=== PATIENT | female | born 2000 | race African-American/Black ===

== ENCOUNTER 2019-09-25 04:23 | Emergency (ER) | payer SELFPAY ==
[2019-09-25] MEDS ORDERED: ALBUTEROL SULFATE HFA (90 MCG/PUFF) 8 GM MDI (1 MDI/ER DISP) IH ONE (06:39)
[2019-09-25 07:43] VITALS: BP 138/78
--- NOTE | 2019-09-25 12:08 | ER Document Report ---
Entered by JIM CASTORENA SCRIBE 09/25/19 0639 Acting as scribe for:JAMIE REVELES MD ED Respiratory Problem - General Chief Complaint: Shortness Of Breath Stated Complaint: WHEEZING Time Seen by Provider: 09/25/19 06:32 Mode of Arrival: Ambulatory Information source: Patient Notes: Patient is a 19-year-old female with a history of asthma who presents to the emergency department today with complaints of shortness of breath. Patient states that she recently moved to the area and prior to moving here she asked her doctor for more nebulizer treatments and an inhaler. Patient states she was given an inhaler which she ran out of but was told she was "too old for the medicine that goes in the nebulizer machines". Patient was last on prednisone 1 to 2 months ago. TRAVEL OUTSIDE OF THE [place] IN LAST 30 DAYS: No - Related Data Allergies/Adverse Reactions: No Known Allergies Allergy (Verified 09/25/19 07:47) Past Medical History - General Information source: Patient - Social History Smoking Status: Current Some Day Smoker Cigarette use (# per day): Yes - "1 cig a day" Chew tobacco use (# tins/day): No Smoking Education Provided: No Frequency of alcohol use: None Drug Abuse: None Lives with: Family Family History: Reviewed & Not Pertinent Patient has suicidal ideation: No Patient has homicidal ideation: No Pulmonary Medical History: Reports: Hx Asthma Surgical Hx: Negative Review of Systems - Review of Systems Constitutional: No symptoms reported EENT: No symptoms reported Cardiovascular: No symptoms reported Respiratory: See HPI, Cough, Short of breath, Wheezing Gastrointestinal: No symptoms reported Genitourinary: No symptoms reported Female Genitourinary: Last menstrual period - 09/25/2019 Musculoskeletal: No symptoms reported Skin: No symptoms reported Hematologic/Lymphatic: No symptoms reported Neurological/Psychological: No symptoms reported -: Yes All other systems reviewed and negative Physical Exam - Vital signs Vitals: Temp Pulse Resp BP Pulse Ox 97.8 F 68 16 145/92 H 97 09/25/19 04:27 09/25/19 04:27 09/25/19 04:27 09/25/19 04:27 09/25/19 04:27 - Notes Notes: PHYSICAL EXAMINATION: GENERAL: Well-appearing, well-nourished and in no acute distress. HEAD: Atraumatic, normocephalic. EYES: Pupils equal round and reactive to light, extraocular movements intact, sclera anicteric, conjunctiva are normal. ENT: nares patent, oropharynx clear without exudates. Moist mucous membranes. NECK: Normal range of motion, supple without lymphadenopathy LUNGS: Some coarse breath sounds with occasional wheezes heard on forced cough. No tachypnea or shortness of breath noted. HEART: Regular rate and rhythm without murmurs ABDOMEN: Obese. Otherwise unremarkable EXTREMITIES: Normal range of motion, no pitting or edema. No cyanosis. NEUROLOGICAL: Cranial nerves grossly intact. Normal speech, normal gait. Normal sensory, motor, and reflex exams. PSYCH: Normal mood, normal affect. SKIN: Warm, Dry, normal turgor, no rashes or lesions noted. Course - Vital Signs Vital signs: Temp Pulse Resp BP Pulse Ox 98.1 F 72 16 138/78 H 100 09/25/19 07:42 09/25/19 07:42 09/25/19 07:42 09/25/19 07:42 09/25/19 07:42 Discharge - Discharge Clinical Impression: Has run out of medications Asthma Qualifiers: Asthma severity: mild Asthma persistence: intermittent Asthma complication type: with acute exacerbation Qualified Code(s): J45.21 - Mild intermittent asthma with (acute) exacerbation Condition: Stable Disposition: HOME, SELF-CARE Additional Instructions: Asthma You have been diagnosed as having asthma. This is a condition where there is episodic tightness in the bronchial tubes. Allergies, infections, and polluted or cold air may be contributing factors. Emergency treatment of a severe asthma attack may include adrenaline shots, or bronchodilator aerosol. You may feel lightheaded, have a decreased exercise tolerance and a rapid pulse for an hour or two. Rest and get plenty of fluids. Home treatment of asthma requires bronchodilator drugs. These can be administered by injection, inhalation, or by mouth. Antibiotics and corticosteroids may be required for some patients. You should avoid chemical fumes, dusts, pollens, and exercising in very cold or dry air. If you smoke, stop!! If you develop a fever, increased wheezing, chest pain, or severe shortness of breath, you should contact the doctor immediately. Use the nebulizer for controlling your asthma as needed. Keep the inhaler with you when you are away from home in case she needed. Follow-up with a local primary care provider to manage your asthma and any other medical problems. Prescriptions: Albuterol Sulfate [Ventolin 0.083% Neb 2.5 mg/3 mL Ampul] 1 vial NEB Q4 PRN #50 vial PRN Reason: For Wheezing Forms: Parent Work Note, Return to Work Scribe Attestation: 09/25/19 06:40 I personally performed the services described in the documentation, reviewed and edited the documentation which was dictated to the scribe in my presence, and it accurately records my words and actions. I personally performed the services described in the documentation, reviewed and edited the documentation which was dictated to the scribe in my presence, and it accurately records my words and actions.
== END 2019-09-25 07:51 | disposition home or self-care (01) ==
LOC: ER 04:23
DX: J45.21 Mild intermittent asthma with (acute) exacerbation (principal); F17.210 Nicotine dependence, cigarettes, uncomplicated; E66.9 Obesity, unspecified
CPT/HCPCS: 99284; J3490

== ENCOUNTER 2019-11-08 17:54 | Emergency (ER) | payer SELFPAY ==
[2019-11-08] MEDS ORDERED: KETOROLAC TROMETHAMINE 60 MG/2 ML SDV IM ONE (19:37)
--- NOTE | 2019-11-08 19:38 | ER Document Report ---
HPI - HPI Time Seen by Provider: 11/08/19 19:26 Pain Level: 4 Notes: 19-year-old female 19-year-old female presents to the emergency room for new onset lower back pain that started yesterday at approximately 4 PM. No trauma. Tried ibuprofen with some pain relief. Last menstrual period was the end of September. Pain is 4 out of 10, achy and constant. Denies fevers, chills, chest pain,palpitations, shortness of breath, dyspnea, nausea, vomiting, diarrhea, abdominal pain, hematuria,blurred vision, d speech changes, LH, dizziness, syncope, headaches, wheezing, ST, URI, neck pain, weakness, bowel or bladder dysfunction, saddle anesthesia, numbness or tingling in bilateral upper or lower extremities equally, muscle paralysis, weakness in bilateral upper or lower extremities equally or rash. - REPRODUCTIVE Reproductive: DENIES: : Past Medical History - General Information source: Patient - Social History Smoking Status: Never Smoker Family History: Reviewed & Not Pertinent Patient has suicidal ideation: No Patient has homicidal ideation: No Pulmonary Medical History: Reports: Hx Asthma Vertical Provider Document - CONSTITUTIONAL Agree With Documented VS: Yes Exam Limitations: No Limitations General Appearance: WD/WN Notes: PHYSICAL EXAMINATION: reviewed vital signs by RN GENERAL: Well-appearing, well-nourished and in no acute distress. HEAD: Atraumatic, normocephalic. EYES: Pupils equal round and reactive to light, extraocular movements intact, co njunctiva are normal. ENT: Nares patent, oropharynx clear without exudates. Moist mucous membranes. NECK: Normal range of motion, supple without lymphadenopathy LUNGS: Breath sounds clear to auscultation bilaterally and equal. No wheezes rales or rhonchi. HEART: Regular rate and rhythm without murmurs ABDOMEN: Soft, nontender, nondistended abdomen. No guarding, no rebound. No masses appreciated. Female : deferred Musculoskeletal: Normal range of motion, no pitting or edema. No cyanosis. Pain with flexion and extension at 45 degrees, positive straight leg test right. Normal hip rotation. DTR +2 in BLE equally. Strength 5 out of 5 both distally and proximally to bilateral lower extremities normal motor and sensory function in BLE equally. Distal pulses + 2 BLE equally. Noted paraspinal tenderness near L2 and L3. Strength 5 out of 5 in bilateral lower extremities equally. no spinal tenderness. No CVA tenderness bilaterally. Femoral pulses + 2 bilaterally and equally. No abrasions, scars, lacerations, ecchymosis of any recent trauma. normal gait. NEUROLOGICAL: Cranial nerves grossly intact. Normal speech, normal gait. Normal sensory, motor exams PSYCH: Normal mood, normal affect. SKIN: Warm, Dry, normal turgor, no rashes or lesions noted. - INFECTION CONTROL TRAVEL OUTSIDE OF THE [place] IN LAST 30 DAYS: No Course - Re-evaluation Re-evalutation: 11/08/19 19:34 Afebrile vital stable no distress. Lumbar xray today for acute fracture or dislocation or lesion. Advised to apply heat 20 minutes on 20 minutes off several times a day. Apply lidocaine apply lidocaine patch to area to help for pain relief. I have considered osteomyelitis, spinal epidural abscess, fracture, disc herniation, cord compression, cancer, AAA, retroperitoneal bleed, spinal epidural hematoma, and see no evidence to continue evaluation for these pathologies. Afebrile vital stable no distress. Nurse's notes reviewed. Pain is otherwise unremarkable for any focal neurological deficits. Patient given Toradol and Lidoderm patches. No significant tachycardia tachypnea or hypoxia. Nontoxic-appearing is tolerating p.o. without difficulty. No signs of infection. No other red flag symptoms noted. Urinalysis, CBC and CMP unremarkable. Low suspicion for meningitis fracture, expanding ruptured AAA, cauda equina syndrome, epidural mass/lesion, herniated disc causing severe spinal stenosis, systemic infection at this time. Patient is awaiting incision and change ofanemia she needs monitoring symptoms closely for any acute injuries. I will send her home with a prescription for lidocaine patches, Pt can also take [id number] ibuprofen and Tylenol as needed for pain. Conservative measures otherwise for symptoms. Recheck with her your PCM in 3 to 5 days. Consider consult with orthopedic/ neurosurgeon. Return to the ED with any worsening concerning symptoms otherwise review discharge. Patient is in agreement with plan of care and agree with plan of care. 11/08/19 20:38 - Vital Signs Vital signs: Temp Pulse Resp BP Pulse Ox 98.1 F 86 18 142/81 H 98 11/08/19 19:24 11/08/19 19:24 11/08/19 19:24 11/08/19 19:24 11/08/19 19:24 Discharge - Discharge Clinical Impression: Lower back pain Qualifiers: Chronicity: acute Back pain laterality: midline Sciatica presence: without sciatica Qualified Code(s): M54.5 - Low back pain Condition: Stable Disposition: HOME, SELF-CARE Instructions: Low Back Pain ([facility]), Muscle Strain ([facility]), Pain Medication Injection ([facility]), Warm Packs ([facility]) Additional Instructions: *You have been evaluated for back pain. Your back x-ray was negative today *Take medication as prescribed *Rest/Ice- heat as directed *Follow up with a primary care provider *Return to ED for worsening condition, changes, needs Use lidocaine patches as directed. Take naproxen as needed. Return immediately for any new or worsening symptoms. Follow up with primary care provider, call tomorrow to make followup a ppointment. Prescriptions: Lidocaine/Menthol [Lidall 4%-1% Patch] 1 each TP TIDP PRN #20 adh..patch PRN Reason: Naproxen 500 mg PO BID #10 tablet Referrals: JEAN CLAUDE MAY DO [ACTIVE STAFF] - Follow up as needed MEKA CHAUDHRY MD [ACTIVE STAFF] - Follow up as needed
--- NOTE | 2019-11-08 20:34 | RADIOLOGY REPORT (SQ) ---
EXAM DESCRIPTION: [facility]: XR LUMBAR SPINE ANTEROPOSTERIOR, LATERAL, AND OBLIQUES Views: 5 CLINICAL HISTORY: 19 years Female, new onset LBP COMPARISON: None. FINDINGS: Alignment is normal. No subluxation or significant loss of intervertebral disc height or vertebral body height. No evidence for acute fracture. No focal bone lesions. IMPRESSION: 1. Normal lumbar spine.
[2019-11-08 20:48] VITALS: BP 144/79
== END 2019-11-08 20:54 | disposition home or self-care (01) ==
LOC: ER 17:54
DX: M54.5 Low back pain (principal); J45.909 Unspecified asthma, uncomplicated
CPT/HCPCS: 72110; J1885; 96372; 99283

== ENCOUNTER 2020-08-13 06:51 | Emergency (ER) | payer SELFPAY ==
[2020-08-13 06:56] VITALS: BP 130/103
--- NOTE | 2020-08-13 09:27 | ER Document Report ---
Entered by FERMIN JARA SCRIBE 08/13/20 0839 Acting as scribe for:SUSAN LAN MD ED General - General Chief Complaint: Foreign Body in Ear Stated Complaint: FOREIGN OBJECT IN EAR Time Seen by Provider: 08/13/20 07:53 Information source: Patient Notes: This 20 year old female patient presents to the emergency department today with complaints of a foreign body in her left ear. Patient states this morning she felt a bug crawl into her ear and it moving around. Patient states she poured hydrogen peroxide into her ear and has not felt movement since. TRAVEL OUTSIDE OF THE [place] IN LAST 30 DAYS: No - Related Data Allergies/Adverse Reactions: No Known Allergies Allergy (Verified 11/08/19 19:23) Past Medical History - General Information source: Patient - Social History Smoking Status: Current Some Day Smoker Cigarette use (# per day): Yes Family History: Reviewed & Not Pertinent Pulmonary Medical History: Reports: Hx Asthma Review of Systems - Review of Systems Constitutional: No symptoms reported EENT: See HPI, Other - Bug in left ear Cardiovascular: No symptoms reported Respiratory: No symptoms reported Gastrointestinal: No symptoms reported Genitourinary: No symptoms reported Female Genitourinary: No symptoms reported Musculoskeletal: No symptoms reported Skin: No symptoms reported Hematologic/Lymphatic: No symptoms reported Neurological/Psychological: No symptoms reported -: Yes All other systems reviewed and negative Physical Exam - Vital signs Vitals: Temp Pulse Resp BP Pulse Ox 98.1 F 120 H 16 130/103 H 94 08/13/20 06:54 08/13/20 06:54 08/13/20 06:54 08/13/20 06:54 08/13/20 06:54 - General General appearance: Appears well, Alert - HEENT Head: Normocephalic, Atraumatic Eyes: Normal Pupils: PERRL Notes: Brown bug present in the left ear. - Respiratory Respiratory status: No respiratory distress Chest status: Nontender Breath sounds: Normal Chest palpation: Normal - Cardiovascular Rhythm: Regular Heart sounds: Normal auscultation Murmur: No - Abdominal Inspection: Normal Distension: No distension Bowel sounds: Normal Tenderness: Nontender Organomegaly: No organomegaly - Extremities General upper extremity: Normal inspection. No: Edema General lower extremity: Normal inspection. No: Edema - Neurological Neuro grossly intact: Yes Cognition: Normal Orientation: AAOx4 Speech: Normal Sensory: Normal - Psychological Associated symptoms: Normal affect, Normal mood - Skin Skin Temperature: Warm Skin Moisture: Dry Skin Color: Normal Course - Re-evaluation Re-evalutation: 08/13/20 09:24 Patient resting comfortably the foreign body has been removed through irrigation from the left ear canal. 08/13/20 09:25 Patient's left ear canal was irrigated by nurse and there was a complete removal of a brown insect from the left ear through irrigation. Post irrigation ear canal no trauma no bleeding patient in no pain at this time. - Vital Signs Vital signs: Temp Pulse Resp BP Pulse Ox 98.1 F 120 H 16 130/103 H 94 08/13/20 06:54 08/13/20 06:54 08/13/20 06:54 08/13/20 06:54 08/13/20 06:54 08/13/20 09:24 Vital signs show diastolic hypertension 130/103 pulse of 120. Patient was anxious on arrival vital signs should be repeated prior to discharge. Discharge - Discharge Clinical Impression: Acute foreign body of left ear canal Condition: Stable Disposition: HOME, SELF-CARE I personally performed the services described in the documentation, reviewed and edited the documentation which was dictated to the scribe in my presence, and it accurately records my words and actions.
== END 2020-08-13 09:33 | disposition home or self-care (01) ==
LOC: ER 06:51
DX: T16.2XXA Foreign body in left ear, initial encounter (principal); X58.XXXA Exposure to other specified factors, initial encounter; Y93.84 Activity, sleeping; F17.210 Nicotine dependence, cigarettes, uncomplicated; J45.909 Unspecified asthma, uncomplicated; I10 Essential (primary) hypertension
CPT/HCPCS: 99282